=== PATIENT | male | born 1970 | race Caucasian/White ===

== ENCOUNTER → 2018-08-27 | Day surgery (SDC) | payer OTHER ==
[~2018-08-27] VITALS: Ht 185.4 cm; Wt 98.4 kg
[~2018-08-27] MED LIST: AMOXICILLIN500 MG PO; AMOXIL500 MG PO; ANTI INFLAMMATORY PO; ASPIRIN81 M1 PO; BACTRIM DS 8001 TA1 PO; CYCLOBENZAPRINE10 MG PO; CYCLOBENZAPRINE5 M3 PO; Carafate1 GM PO; HIGH BP MED; HYDR12.5C PO; HYDROCODONE BIT1 T11 PO; KEFLEX500 MG PO; LOMOTIL 0.025 M1 TA1 PO; METOPROLOL SUCC50 M1 PO; MOBIC15 MG PO; MOBIC7.5 MG PO; MOTRIN800 MG PO; NKHM; NORCO 10-325 T1 EACH PO; NORCO 325 MG-51 TAB PO; NORCO 5-325 TA1 EACH PO; NORFLEX100 MG PO; Orphenadrine C100 MG PO; PAROXETINE20 MG PO; PEN-VEE K500 MG PO; PEN-VK500 MG PO; PENICILLIN VK500 MG PO; PENICILLIN-VK500 MG PO; PERIDEX 480 ML480 ML PO; PREDNISONE10 MG PO; PREDNISONE20 M1 PO; PREDNISONE50 MG PO; TRAMADOL HCL50 MG PO; TYLENOL WITH CO1 TA1 PO; ULTRAM50 MG PO; VICODIN ES 7501 TAB PO; ZOFRAN4 MG PO; Zofran4 MG PO
[2018-08-27 07:00] VITALS: BP 106/76
[2018-08-27 09:18] VITALS: BP 105/67
[2018-08-27 09:33] VITALS: BP 105/75
[2018-08-27 09:48] VITALS: BP 125/82
== END | disposition home or self-care (01) ==
LOC: SDC 08-23 11:00
DX: D12.5 Benign neoplasm of sigmoid colon (principal); K63.89 Other specified diseases of intestine; K57.30 Diverticulosis of large intestine without perforation or abscess without bleeding; I10 Essential (primary) hypertension; F17.210 Nicotine dependence, cigarettes, uncomplicated; H54.40 Blindness, one eye, unspecified eye; Z88.6 Allergy status to analgesic agent; Z79.899 Other long term (current) drug therapy; Z98.890 Other specified postprocedural states; Z82.49 Family history of ischemic heart disease and other diseases of the circulatory system

== ENCOUNTER → 2018-09-17 | Day surgery (SDC) | payer OTHER ==
[2018-09-12 14:27] LABS: BASO % 0.4 % (0.0-1.0); EOS # 0.3 10*3/uL (0.0-0.4); EOS % 2.7 % (1.0-4.0); HEMATOCRIT 45.2 % (42.0-52.0); HEMOGLOBIN 15.3 g/dl (14.0-18.0); LYMPH # 2.9 10*3/uL (1.3-4.4); LYMPH % 30.4 % (27.0-41.0); MEAN CELL VOLUME 88.5 fl (80.0-94.0); MEAN CORPUSCULAR HGB 29.9 pg (27.0-31.0); MEAN CORPUSCULAR HGB CONC 33.8 g/dl (33.0-37.0); MONO # 0.6 10*3/uL (0.1-1.0); MONO % 6.5 % (3.0-9.0); NEUT # 5.6 10*3/uL (2.3-7.9); NEUT % 59.3 % (47.0-73.0); PLATELET COUNT AUTOMATED 181 10*3/uL (130-400); RED BLOOD COUNT 5.11 10*6/uL (4.50-5.90); RED CELL DISTRI WIDTH 13.1 % (0-14.5); WHITE BLOOD COUNT 9.5 10*3/uL (4.8-10.8)
[2018-09-12 14:39] LABS: BUN 13 mg/dl (7-24); CHLORIDE 103 mmol/L (98-107); CREATININE 0.87 mg/dL (0.70-1.30); POTASSIUM 3.8 mmol/L (3.5-5.1); SODIUM 137 mmol/L (136-145)
[~2018-09-17] VITALS: Ht 185.4 cm; Wt 97.5 kg
--- NOTE | ~2018-09-17 | EKG ---
[place], [place] ELECTROCARDIOGRAM REPORT NAME: RADU JIMENEZ UNIT #: [id number] ROOM: DOCTOR: EPIPHANY DRAFT REPORT BIRTHDATE: [birth year] [facility] Test Date: 2018-09-12 Test Time: 14:17:29 Pat Name: RADU JIMENEZ Department: Room: Gender: G[employer]: Karly Flores : 1970 Requested By: JESSA ARROYO Order Number: [id number] Reading MD: Alex Medina MD Measurements Intervals [place] Rate: 72 P: 17 ND: 156 QRS: -16 QRSD: 110 T: 12 QT: 380 QTc: 416 Interpretive Statements Sinus rhythm Borderline left axis deviation RSR' in V1 or V2, probably normal variant Baseline wander in lead(s) II,III,aVF No previous ECG available for comparison Electronically Signed On 09-12-2018 16:38:48 PST by Alex Medina MD CM:EKGRPT:ELECTROCARDIOGRAM REPORT [id number] JESSA ARROYO MD EPIPHANY DRAFT REPORT JESSA ARROYO MD
[2018-09-17 10:05] VITALS: BP 115/85
[2018-09-17 10:20] VITALS: BP 116/89
[2018-09-17 10:35] VITALS: BP 119/72
[2018-09-17 10:47] VITALS: BP 122/85
== END | disposition home or self-care (01) ==
LOC: SDC 09-12 13:15
DX: K43.6 Other and unspecified ventral hernia with obstruction, without gangrene (principal); I10 Essential (primary) hypertension; F17.210 Nicotine dependence, cigarettes, uncomplicated; Z72.89 Other problems related to lifestyle; Z88.8 Allergy status to other drugs, medicaments and biological substances; Z79.899 Other long term (current) drug therapy; Z98.890 Other specified postprocedural states; Z82.49 Family history of ischemic heart disease and other diseases of the circulatory system

== ENCOUNTER 2020-05-13 12:19 | Emergency (ER) | payer OTHER ==
[~2020-05-13] VITALS: Ht 185.4 cm; Wt 102.1 kg
== END 2020-05-13 15:05 | disposition home or self-care (01) ==
LOC: ED 12:19
DX: S92.422A Displaced fracture of distal phalanx of left great toe, initial encounter for closed fracture (principal); I10 Essential (primary) hypertension; F17.200 Nicotine dependence, unspecified, uncomplicated; Z88.8 Allergy status to other drugs, medicaments and biological substances; Z79.899 Other long term (current) drug therapy; W01.0XXA Fall on same level from slipping, tripping and stumbling without subsequent striking against object, initial encounter; Y93.89 Activity, other specified; Y92.89 Other specified places as the place of occurrence of the external cause; Y99.8 Other external cause status

== ENCOUNTER → 2020-11-12 | Outpatient (CLI) | payer OTHER | END | disposition home or self-care (01) | LOC: COVID19 10:00 | PROVIDERS: ATTEND Nurse Practitioner Family | DX: Z20.822 Contact with and (suspected) exposure to COVID-19 (principal) ==

== ENCOUNTER → 2020-12-22 | Outpatient (CLI) | payer BC | END | disposition home or self-care (01) | LOC: COVID19 09:34 | PROVIDERS: ATTEND Nurse Practitioner Family | DX: U07.1 COVID-19 (principal) ==

== ENCOUNTER → 2021-11-22 | Outpatient (CLI) | payer BC | END | disposition home or self-care (01) | LOC: RAD 15:00 | PROVIDERS: ATTEND Nurse Practitioner Family | DX: M19.031 Primary osteoarthritis, right wrist (principal) ==

== ENCOUNTER → 2021-12-16 | Outpatient (CLI) | payer BC | END | disposition home or self-care (01) | LOC: US 13:24 | PROVIDERS: ATTEND Nurse Practitioner Family | DX: D17.21 Benign lipomatous neoplasm of skin and subcutaneous tissue of right arm (principal) ==

== ENCOUNTER → 2022-02-09 | Day surgery (SDC) | payer BC ==
[2022-02-06 14:29] LABS: BUN 15 mg/dl (7-24); CHLORIDE 107 mmol/L (98-107); CREATININE 0.85 mg/dL (0.70-1.30); POTASSIUM 3.9 mmol/L (3.5-5.1); SODIUM 141 mmol/L (136-145)
[~2022-02-09] VITALS: Ht 185.4 cm; Wt 108.9 kg
[2022-02-09 07:25] VITALS: BP 115/81
[2022-02-09 08:40] VITALS: BP 110/74
[2022-02-09 08:55] VITALS: BP 109/82
[2022-02-09 09:10] VITALS: BP 116/84
== END | disposition home or self-care (01) ==
LOC: SDC 02-06 11:00
PROVIDERS: ATTEND Orthopaedic Surgery
DX: G56.03 Carpal tunnel syndrome, bilateral upper limbs (principal); I10 Essential (primary) hypertension; Z79.899 Other long term (current) drug therapy

== ENCOUNTER 2022-04-06 05:18 | Emergency (ER) | payer OTHER ==
[~2022-04-06] VITALS: Ht 185.4 cm; Wt 290.3 kg
[2022-04-06] MEDS ORDERED: IBUPROFEN600 MG PO (05:49)
== END 2022-04-06 06:12 | disposition home or self-care (01) ==
LOC: ED 05:18
DX: M25.562 Pain in left knee (principal)

== ENCOUNTER → 2022-05-05 | Outpatient (CLI) | payer OTHER, BC ==
[~2022-05-05] MED LIST changes: +IBUPROFEN600 MG PO
== END | disposition home or self-care (01) ==
LOC: MRI 08:51
PROVIDERS: ATTEND Orthopaedic Surgery
DX: S83.232A Complex tear of medial meniscus, current injury, left knee, initial encounter (principal); S83.282A Other tear of lateral meniscus, current injury, left knee, initial encounter; X58.XXXA Exposure to other specified factors, initial encounter; Y93.89 Activity, other specified; Y92.89 Other specified places as the place of occurrence of the external cause; Y99.8 Other external cause status

== ENCOUNTER → 2022-06-01 | Day surgery (SDC) | payer OTHER ==
[2022-05-29 14:41] VITALS: BP 136/78
[2022-05-29 15:42] LABS: BUN 15 mg/dl (7-24); CHLORIDE 111 mmol/L (98-107); POTASSIUM 3.6 mmol/L (3.5-5.1); SODIUM 139 mmol/L (136-145)
[~2022-06-01] VITALS: Ht 185.4 cm; Wt 115.7 kg
[~2022-06-01] MED LIST changes: +HYDROCODONE-AC1 EAC1 PO
[2022-06-01 08:25] VITALS: BP 128/94
[2022-06-01 10:14] VITALS: BP 110/69
[2022-06-01 10:29] VITALS: BP 97/64
[2022-06-01 10:44] VITALS: BP 119/86
[2022-06-01 10:59] VITALS: BP 118/82
== END | disposition home or self-care (01) ==
LOC: SDC 05-26 14:00
PROVIDERS: ATTEND Orthopaedic Surgery
DX: S83.232A Complex tear of medial meniscus, current injury, left knee, initial encounter (principal); S83.272A Complex tear of lateral meniscus, current injury, left knee, initial encounter; I10 Essential (primary) hypertension; I45.10 Unspecified right bundle-branch block; F17.210 Nicotine dependence, cigarettes, uncomplicated; X50.1XXA Overexertion from prolonged static or awkward postures, initial encounter; Y93.89 Activity, other specified; Y92.89 Other specified places as the place of occurrence of the external cause; Y99.8 Other external cause status

== ENCOUNTER 2023-06-24 11:19 | Emergency (ER) | payer BC ==
[~2023-06-24] VITALS: Ht 185.4 cm; Wt 108.9 kg
[2023-06-24] MEDS ORDERED: ASPIRIN ADULT L81 M1 PO (11:29)
[2023-06-24] MEDS ORDERED: PREDNISONE20 M1 PO (12:05)
[2023-06-24] MEDS ORDERED: MELOXICAM15 MG PO (12:05)
== END 2023-06-24 12:17 | disposition home or self-care (01) ==
LOC: ED 11:19
DX: M79.671 Pain in right foot (principal); I10 Essential (primary) hypertension; Z88.6 Allergy status to analgesic agent; Z98.890 Other specified postprocedural states

== ENCOUNTER → 2023-06-29 | Outpatient (CLI) | payer BC ==
[~2023-06-29] MED LIST changes: +ASPIRIN ADULT L81 M1 PO; +MELOXICAM15 MG PO
[2023-06-29 11:04] LABS: HEMATOCRIT 44.6 % (42.0-52.0); MEAN CELL VOLUME 90.7 fl (80.0-94.0); MEAN CORPUSCULAR HGB 31.1 pg (27.0-31.0); MEAN CORPUSCULAR HGB CONC 34.3 g/dl (33.0-37.0); PLATELET COUNT AUTOMATED 183 10*3/uL (130-400); RED BLOOD COUNT 4.92 10*6/uL (4.50-5.90); RED CELL DISTRI WIDTH 13.6 % (0-14.5); WHITE BLOOD COUNT 13.3 10*3/uL (4.8-10.8)
[2023-06-29 11:14] LABS: MANUAL DIFF REFLEX YES
[2023-06-29 11:28] LABS: ALKALINE PHOSPHATASE 70 U/L (46-116); BUN 14 mg/dl (9-23); CHLORIDE 105 mmol/L (98-107); POTASSIUM 3.6 mmol/L (3.4-5.1); SGPT/ALT 22 U/L (10-49); TOTAL PROTEIN 7.6 gm/dL (6.0-8.0)
[2023-06-29 11:47] LABS: TOTAL CELLS COUNTED 100 #CELLS
[2023-06-29 11:48] LABS: PLATELET SUFFICIENCY NORMAL (NORMAL)
== END | disposition home or self-care (01) ==
LOC: LAB 09:58
PROVIDERS: ATTEND Nurse Practitioner Family
DX: I10 Essential (primary) hypertension (principal); M25.531 Pain in right wrist

== ENCOUNTER → 2023-09-17 | Day surgery (SDC) | payer BC ==
[~2023-09-17] VITALS: Ht 185.4 cm; Wt 106.6 kg
[2023-09-17 09:41] VITALS: BP 131/92
[2023-09-17 11:48] VITALS: BP 118/74
[2023-09-17 12:03] VITALS: BP 105/69
[2023-09-17 12:18] VITALS: BP 105/68
[2023-09-17 12:28] VITALS: BP 115/79
== END | disposition home or self-care (01) ==
LOC: SDC 09-13 09:30
PROVIDERS: ATTEND Surgery
DX: L72.3 Sebaceous cyst (principal); L72.0 Epidermal cyst; I10 Essential (primary) hypertension; F17.210 Nicotine dependence, cigarettes, uncomplicated; Z79.899 Other long term (current) drug therapy; Z98.890 Other specified postprocedural states; Z88.8 Allergy status to other drugs, medicaments and biological substances

== ENCOUNTER → 2023-10-25 | Outpatient (CLI) | payer BC ==
[2023-10-25 09:44] LABS: BASO # 0.1 10*3/uL (0.0-0.1); BASO % 0.7 % (0.0-1.0); EOS # 0.2 10*3/uL (0.0-0.4); EOS % 1.9 % (1.0-4.0); HEMATOCRIT 44.4 % (42.0-52.0); LYMPH # 2.8 10*3/uL (1.3-4.4); LYMPH % 30.5 % (27.0-41.0); MEAN CELL VOLUME 91.7 fl (80.0-94.0); MEAN CORPUSCULAR HGB 30.4 pg (27.0-31.0); MEAN CORPUSCULAR HGB CONC 33.1 g/dl (33.0-37.0); MEAN PLATELET VOLUME 10.1 fl (9.6-12.3); MONO # 0.6 10*3/uL (0.1-1.0); MONO % 6.1 % (3.0-9.0); NEUT # 5.5 10*3/uL (2.3-7.9); NEUT % 60.5 % (47.0-73.0); PLATELET COUNT AUTOMATED 170 10*3/uL (130-400); RED BLOOD COUNT 4.84 10*6/uL (4.50-5.90); RED CELL DISTRI WIDTH 13.6 % (0-14.5); WHITE BLOOD COUNT 9.1 10*3/uL (4.8-10.8)
[2023-10-25 10:54] LABS: ALKALINE PHOSPHATASE 79 U/L (46-116); BUN 12 mg/dl (9-23); CHLORIDE 107 mmol/L (98-107); CHOLESTEROL 169 mg/dL (<200); LDL CHOLESTEROL 108 mg/dL (9-159); SGPT/ALT 20 U/L (5-49); TOTAL PROTEIN 8.1 gm/dL (6.0-8.0); TRIGLYCERIDES 142 mg/dl (<150)
== END | disposition home or self-care (01) ==
LOC: LAB 09:26
PROVIDERS: ATTEND Nurse Practitioner Family
DX: I10 Essential (primary) hypertension (principal); L08.9 Local infection of the skin and subcutaneous tissue, unspecified; L72.3 Sebaceous cyst; G47.33 Obstructive sleep apnea (adult) (pediatric)

== ENCOUNTER → 2024-04-08 | Outpatient (CLI) | payer BC | LOC: RAD 15:21 | PROVIDERS: ATTEND Nurse Practitioner Family | DX: M19.012 Primary osteoarthritis, left shoulder (principal); M25.512 Pain in left shoulder; M25.552 Pain in left hip ==

== ENCOUNTER 2024-06-29 16:10 | Emergency (ER) | payer BC ==
[~2024-06-29] VITALS: Ht 185.4 cm
[2024-06-29] MEDS ORDERED: Ondansetron Hydrochloride 4 MG/2 ML VIAL IV ONE (16:20)
[2024-06-29] MEDS ORDERED: MORPHINE Sulfate 2 MG/ML SYR IV ONE (16:20)
[2024-06-29] MEDS ORDERED: SODIUM CHLORIDE 0.9% 1,000 ML IV ONE (16:20)
[2024-06-29 16:28] LABS: BASO # 0.1 10*3/uL (0.0-0.1); BASO % 0.4 % (0.0-1.0); EOS # 0.2 10*3/uL (0.0-0.4); EOS % 1.3 % (1.0-4.0); HEMATOCRIT 41.4 % (42.0-52.0); LYMPH # 2.9 10*3/uL (1.3-4.4); MEAN CELL VOLUME 90.8 fl (80.0-94.0); MEAN CORPUSCULAR HGB 30.9 pg (27.0-31.0); MEAN CORPUSCULAR HGB CONC 34.1 g/dl (33.0-37.0); MEAN PLATELET VOLUME 10.5 fl (9.6-12.3); MONO # 0.6 10*3/uL (0.1-1.0); MONO % 5.3 % (3.0-9.0); NEUT # 7.7 10*3/uL (2.3-7.9); NEUT % 67.6 % (47.0-73.0); PLATELET COUNT AUTOMATED 151 10*3/uL (130-400); RED BLOOD COUNT 4.56 10*6/uL (4.50-5.90); RED CELL DISTRI WIDTH 13.2 % (0-14.5); WHITE BLOOD COUNT 11.4 10*3/uL (4.8-10.8)
[2024-06-29 16:41] LABS: BILIRUBIN Negative (Negative); BLOOD Negative (Negative); CLARITY Clear (Clear); COLOR Yellow (Yellow); GLUCOSE Negative (Negative); KETONE Trace (Negative); LEUKO ESTERASE Negative (Negative); NITRITE Negative (Negative); PH 5.5 (4.5-8.0); SPECIFIC GRAVITY >= 1.030 (1.001-1.030)
[2024-06-29 16:51] LABS: BUN 13 mg/dl (9-23); CHLORIDE 109 mmol/L (98-107); POTASSIUM 3.4 mmol/L (3.4-5.1)
[2024-06-29 16:51] LABS: EPITHELIAL CELLS 0-2; WBC 0-2 wbc/hpf (0-5)
[2024-06-29] MEDS ORDERED: METHOCARBAMOL750 M1 PO ×2 (17:00→17:12)
== END 2024-06-29 17:05 | disposition home or self-care (01) ==
LOC: ED 16:10
PROVIDERS: Emergency Medicine
DX: R10.9 Unspecified abdominal pain (principal); R11.0 Nausea; I10 Essential (primary) hypertension; Z88.6 Allergy status to analgesic agent; Z98.890 Other specified postprocedural states

== ENCOUNTER → 2024-11-05 | Outpatient (CLI) | payer OTHER ==
[~2024-11-05] MED LIST changes: +METHOCARBAMOL750 M1 PO
== END | disposition home or self-care (01) ==
LOC: CT 11-03 08:00
PROVIDERS: ATTEND Nurse Practitioner Family
DX: Z12.2 Encounter for screening for malignant neoplasm of respiratory organs (principal); F17.210 Nicotine dependence, cigarettes, uncomplicated; D35.01 Benign neoplasm of right adrenal gland; J84.89 Other specified interstitial pulmonary diseases

== ENCOUNTER 2025-10-23 16:14 | Emergency (ER) | payer OTHER ==
[~2025-10-23] VITALS: Ht 185.4 cm; Wt 108.0 kg
[2025-10-23] MEDS ORDERED: Acetaminophen/Oxycodone 5 MG/325 MG TABLET PO ONE (16:35)
[2025-10-23] MEDS ORDERED: MEDROL DOSEPAK4 MG PO (18:13)
== END 2025-10-23 18:23 | disposition home or self-care (01) ==
LOC: ED 16:14
DX: M25.561 Pain in right knee (principal); M19.90 Unspecified osteoarthritis, unspecified site; I10 Essential (primary) hypertension